=== PATIENT | male | born 1945 ===

== ENCOUNTER 2023-10-21 12:37 | Day surgery (SDC) | payer MEDICARE, MEDICAID ==
[~2023-10-21] VITALS: Ht 188 cm; Wt 75.0 kg
[~2023-10-21 12:37] MED LIST: Famotidine 20 MG TAB PO SCH; LR 1,000 ML IV SCH
[2023-10-21] MEDS ORDERED: dexAMETHasone 10 MG/ML VIAL ONE (13:54)
[2023-10-21] MEDS ORDERED: Lidocaine PF 2% (20 MG/ML) 5 ML VIAL ONE (13:54)
[2023-10-21] MEDS ORDERED: Ondansetron 4 MG/2 ML VIAL ONE (13:54)
[2023-10-21] MEDS ORDERED: Hyoscyamine 0.125 MG Sublingual TAB SL PRN (15:30)
[2023-10-21] MEDS ORDERED: Naloxone 0.4 MG/ML VIAL IV PRN (15:30)
[2023-10-21] MEDS ORDERED: Ondansetron 4 MG/2 ML VIAL IV PRN ×2 (15:30→16:30)
[2023-10-21] MEDS ORDERED: Acetaminophen 325 MG TAB PO PRN (15:30)
[2023-10-21 15:32] VITALS: BP 115/76; PULSE 99; TEMP 98.5
--- NOTE | 2023-10-21 15:55 | NUR ---
1241 Pt to [facility] via wheel chair, accompanied by his daughter. Pt required a total lift to move to cart. Pt is alert, but confused. He is unable to state why he is here today. Called [facility] [place], [place], to obtain Pt's DPOA paperwork. Called Pt's other daughter, DAE Whelan, to obtain consent for surgery, anesthesia and blood product administration. Consent witnessed by Lisa Mckoy RN. Had difficulty obtaining IV access. Access obtained after 5 attempts. Final attempt by Donald Srivastava APRN, using ultra sound, #22 left forearm. LR infusing via gravity. Pt comes with an indwelling kessler catheter, wound vac to left lower leg, bilateral lower extremity booties. Call light in reacg. Warm blankets provided.
[2023-10-21] MEDS ORDERED: Acetaminophen 500 MG TAB PO SCH (16:00)
[2023-10-21] MEDS ORDERED: ALBUTEROL0.83 MG/ML IH (16:18)
[2023-10-21] MEDS ORDERED: LIPITOR20 MG PO (16:19)
[2023-10-21] MEDS ORDERED: LIORESAL 1010 MG/TAB PO (16:20)
[2023-10-21] MEDS ORDERED: SEPTRA DS 8001 TAB PO (16:29)
[2023-10-21] MEDS ORDERED: Iohexol 350 - 100 ML VIAL URETER -L ONE (16:30)
[2023-10-21] MEDS ORDERED: CALCIUM 600-D 61 TAB PO (16:30)
[2023-10-21] MEDS ORDERED: HYDROmorphone 2 MG/1 ML VIAL IV PRN (16:30)
[2023-10-21] MEDS ORDERED: fentaNYL 50 MCG/ML 2 ML VIAL IV PRN (16:30)
[2023-10-21] MEDS ORDERED: Lidocaine 2% (20 MG/ML) 20 ML UROJET UR ONE (16:30)
[2023-10-21] MEDS ORDERED: CRANBERRY 4001 EACH PO (16:31)
[2023-10-21] MEDS ORDERED: CULTURELLE1 EAC1 PO (16:31)
[2023-10-21] MEDS ORDERED: FIBERCON (16:32)
[2023-10-21] MEDS ORDERED: DULCOLAX S10 MG/SUPP RC (16:32)
[2023-10-21] MEDS ORDERED: LASIX 40MG TABL40 MG PO (16:34)
[2023-10-21] MEDS ORDERED: FLONASEALLERGY NS (16:34)
[2023-10-21] MEDS ORDERED: NEURONTIN300 MG/CAP PO (16:35)
[2023-10-21] MEDS ORDERED: GENTAMICIN I40 MG/ML IR (16:41)
[2023-10-21] MEDS ORDERED: MUCINEX 60600 MG/TA1 PO (16:43)
[2023-10-21] MEDS ORDERED: MOTRIN 200200 MG/TAB PO (16:44)
[2023-10-21] MEDS ORDERED: LIDODERM 5% PATC1 EA TP (16:46)
[2023-10-21] MEDS ORDERED: MIRALAX PA17 GM/Dose PO (16:47)
[2023-10-21] MEDS ORDERED: REMERON 15M15 MG/TA1 PO (16:48)
[2023-10-21] MEDS ORDERED: MULTI VITAMINS1 TAB PO (16:52)
[2023-10-21] MEDS ORDERED: NEPHPLEX RX1 TAB PO (16:53)
[2023-10-21] MEDS ORDERED: NORCO 325 MG-51 TAB PO ×2 (16:54→16:56)
[2023-10-21] MEDS ORDERED: TYLENOL 325MG325 MG PO (16:57)
[2023-10-21] MEDS ORDERED: PRIL40 PO (16:57)
[2023-10-21] MEDS ORDERED: VITAMINS A AND1 OIN TOP (17:02)
[2023-10-21] MEDS ORDERED: VITAMIN C500 MG PO (17:03)
[2023-10-21 17:04] VITALS: BP 130/67; PULSE 86; TEMP 97.2
[2023-10-21 17:15] VITALS: BP 121/72; PULSE 92
[2023-10-21 17:45] VITALS: BP 125/66; PULSE 86
--- NOTE | 2023-10-21 18:00 | NUR ---
1704 RETURNS TO ROOM 1 PER CART. AWAKE, ALERT. RESP UNLABORED. HOB ELEVATED 40 DEGREES. CONVERSES APPROPRIATELY. VITAL SIGNS OBTAINED. DENIES PAIN OR URINARY URGENCY. ABD SOFT. BROOKS CATHETER PATENT URINE CLEAR, LIGHT PINK. CALL LIGHT AT SIDE. DAUGHTER IN ROOM. 1715 HOB ELEVATED 80 DEGREES. TOLERATES PO JUICE WITHOUT NAUSEA 1730 100 ML LIGHT PINK URINE EMPTIED FROM BROOKS COLLECTION BAG 1740 DISCHARGE INSTRUCTIONS REVIEWED WITH PATIENT AND DAUGHTER. COPY PROVIDED IN DISCHARGE FOLDER THAT WILL GO WITH PATIENT BACK TO [facility] 1755 PATIENT DRESSES BY STAFF, THEN TRANSFERRED TO WHEELCHAIR 1808 DISCHARGED PER WHEELCHAIR TO TRANSPORT VAN FROM [facility]
== END 2023-10-21 18:08 | disposition home or self-care (01) ==
LOC: SDCO 12:37
DX: N28.89 Other specified disorders of kidney and ureter (principal); R33.8 Other retention of urine; R31.0 Gross hematuria; Z87.440 Personal history of urinary (tract) infections
CPT/HCPCS: C1769; J0690; J1100; J2405; J2704; J7120; Q9967